=== PATIENT | male | born 1975 | race Caucasian/White ===

== ENCOUNTER 2019-04-27 13:55 | Inpatient (IN) | payer MEDICARE ==
[~2019-04-27] VITALS: Ht 188 cm; Wt 93.9 kg
[2019-04-27 14:53] VITALS: BP 147/105
[2019-04-27] MEDS ORDERED: OLANZapine 5 MG RAPDIS TABLET PO PRN (15:00)
[2019-04-27] MEDS ORDERED: LORazepam 2 MG TABLET PO PRN (15:00)
[2019-04-27] MEDS: LamoTRIgine 100 MG TABLET PO SCH ×5 (15:00→22:54)
[2019-04-27] MEDS ORDERED: ZOLPIDEM TARTRATE 10 MG TABLET PO PRN (15:00)
[2019-04-27 15:48] VITALS: BP 158/109
[2019-04-27] MEDS ORDERED: PETROLATUM,WHITE 28 GM JELLY TP PRN (16:30)
[2019-04-27] MEDS ORDERED: AmLODIPine BESYLATE 5 MG TABLET PO ONE (16:30)
[2019-04-27] MEDS ORDERED: ALBUTEROL SULFATE HFA 90 MCG/PUFF 8 GM INHALER IH PRN (16:30)
[2019-04-27] MEDS ORDERED: LOPERAMIDE HCL 2 MG CAPSULE PO PRN (16:30)
[2019-04-27] MEDS ORDERED: GuaiFENesin/D-METHORPHAN [SUGAR-FREE] 200-20MG/10 ML SYRUP UDCUP PO PRN (16:30)
[2019-04-27] MEDS ORDERED: ACETAMINOPHEN 325 MG TABLET PO PRN (16:30)
[2019-04-27] MEDS ORDERED: MAG HYDROX/AL HYDROX/SIMETH ES 30 ML SUSPENSION UDCUP PO PRN (16:30)
[2019-04-27] MEDS ORDERED: DOCUSATE SODIUM 100 MG CAPSULE PO PRN (16:30)
[2019-04-27] MEDS ORDERED: CloNIDine HCL 0.1 MG TABLET PO PRN (16:30)
[2019-04-27] MEDS ORDERED: MAGNESIUM HYDROXIDE SUSPENSION 30 ML UDCUP PO PRN (16:30)
[2019-04-27] MEDS ORDERED: IBUPROFEN 400 MG TABLET PO PRN (16:30)
[2019-04-27] MEDS ORDERED: ONDANSETRON HCL 4 MG TABLET PO PRN (16:30)
[2019-04-27] MEDS: BusPIRone HCL 5 MG TABLET PO SCH ×2 (17:00→18:28)
[2019-04-27] MEDS: NICOTINE 14 MG/24 HOUR PATCH TD PRN (18:29)
[2019-04-27] MEDS: OLANZapine 10 MG TABLET PO SCH (22:53)
[2019-04-28 00:08] VITALS: BP 123/91
[2019-04-28 07:49] LABS: BASOPHILS % (AUTO) 0.3 % (0.0-2.0); EOSINOPHILS % (AUTO) 3.1 % (1.0-6.0); HEMATOCRIT 45.1 % (41-53); HEMOGLOBIN 14.9 g/dL (13.5-17.5); LYMPHOCYTES # (AUTO) 2.2 K/uL (1.0-4.8); LYMPHOCYTES % (AUTO) 34.2 % (22.0-44.0); MEAN CORPUSCULAR HEMOGLOBIN 31.4 pg (26.0-34.0); MEAN CORPUSCULAR VOLUME 95 fL (80-100); MONOCYTES # (AUTO) 0.4 K/uL (0.1-1.0); MONOCYTES % (AUTO) 6.1 % (2.0-9.0); NEUTROPHILS # (AUTO) 3.7 K/uL (1.8-7.7); NEUTROPHILS % (AUTO) 56.3 % (40.0-70.0); PLATELET COUNT (AUTO) 321 K/uL (150-450); RED BLOOD CELL COUNT(AUTO) 4.74 MIL/uL (4.50-5.90); RED CELL DISTRIBUTION WIDTH 14.2 % (11.5-14.5)
[2019-04-28 08:10] VITALS: BP 136/83
[2019-04-28 08:15] LABS: ALANINE AMINOTRANSFERASE 18 U/L (12-78); ALBUMIN 3.6 g/dL (3.4-5.0); ALKALINE PHOSPHATASE 71 U/L (46-116); ANION GAP 8 mmol/L (8-16); ASPARTATE AMINOTRANSFERASE 12 U/L (15-37); BILIRUBIN,TOTAL 0.4 mg/dL (0.1-1.0); CALCIUM, TOTAL 9.4 mg/dL (8.8-10.5); CARBON DIOXIDE 26 mmol/L (22-29); CHLORIDE 107 mmol/L (98-107); CHOL/HDL RATIO 4.9 (4.2-7.3); CHOLESTEROL 162 mg/dL (131-200); CREATININE 1.18 mg/dL (0.60-1.30); GLOMERULAR FILTR. RATE CALC > 60 mL/min (>60); GLUCOSE,RANDOM 83 mg/dL (70-110); HDL CHOLESTEROL 33 mg/dL (40-60); LDL CHOL (CALC.) 87 mg/dL (0-130); POTASSIUM 4.2 mmol/L (3.5-5.1); SODIUM SERUM 141 mmol/L (136-145); THYROID STIMULATING HORMONE 0.73 uIU/mL (0.36-3.74); TOTAL PROTEIN, SERUM 7.2 g/dL (6.4-8.2); TRIGLYCERIDES 208 mg/dL (15-150); UREA NITROGEN, BLOOD 21 mg/dL (7-18)
[2019-04-28 08:25] LABS: APPEARANCE,URINE CLEAR (CLEAR); BILIRUBIN,URINE NEGATIVE (NEGATIVE); GLUCOSE, URINE (UA) NEGATIVE (NEGATIVE); KETONES,URINE NEGATIVE (NEGATIVE); LEUKOCYTE ESTERASE ,URINE NEGATIVE (NEGATIVE); NITRATE,URINE NEGATIVE (NEGATIVE); OCCULT BLOOD,URINE NEGATIVE (NEGATIVE); PH,URINE 5.5 (5.0-8.0); PROTEIN,URINE NEGATIVE (NEGATIVE); UROBILINOGEN,URINE 0.2 mg/dL (<=1.0)
[2019-04-28 08:26] LABS: AMPHET/METH SCREEN,URINE NEGATIVE (NEGATIVE); BARBITURATE SCREEN, URINE NEGATIVE (NEGATIVE); BENZODIAZEPINES SCREEN,URINE NEGATIVE (NEGATIVE); CANNABINOID SCREEN,URINE POSITIVE (NEGATIVE); COCAINE SCREEN,URINE NEGATIVE (NEGATIVE); METHADONE SCREEN, URINE NEGATIVE (NEGATIVE); OPIATE SCREEN,URINE NEGATIVE (NEGATIVE)
[2019-04-28 08:29] LABS: PHENCYCLIDINE SCREEN,URINE NEGATIVE (NEGATIVE)
[2019-04-28] MEDS: LamoTRIgine 100 MG TABLET PO SCH ×2 (08:39→16:03)
[2019-04-28] MEDS: BusPIRone HCL 5 MG TABLET PO SCH ×2 (08:39→16:03)
[2019-04-28] MEDS: AmLODIPine BESYLATE 5 MG TABLET PO SCH (08:40)
[2019-04-28] MEDS: NICOTINE 14 MG/24 HOUR PATCH TD PRN (10:45)
[2019-04-28 16:15] VITALS: BP 131/79
[2019-04-28] MEDS: OLANZapine 10 MG TABLET PO SCH (20:21)
[2019-04-29] VITALS: BP 116/74
[2019-04-29] MEDS: NICOTINE 14 MG/24 HOUR PATCH TD PRN (08:15)
[2019-04-29] MEDS: LamoTRIgine 100 MG TABLET PO SCH ×2 (08:15→16:52)
[2019-04-29] MEDS: BusPIRone HCL 5 MG TABLET PO SCH ×2 (08:15→16:52)
[2019-04-29] MEDS: AmLODIPine BESYLATE 5 MG TABLET PO SCH (08:15)
[2019-04-29 08:26] VITALS: BP 134/77
[2019-04-29 16:18] VITALS: BP 130/86
[2019-04-29] MEDS: OLANZapine 10 MG TABLET PO SCH (20:17)
[2019-04-30 00:27] VITALS: BP 121/68
[2019-04-30 08:24] VITALS: BP 127/75
[2019-04-30] MEDS ORDERED: LAMO100 PO (08:44)
[2019-04-30] MEDS ORDERED: OLAN10TA3 PO (08:44)
[2019-04-30] MEDS: LamoTRIgine 100 MG TABLET PO SCH (08:47)
[2019-04-30] MEDS: BusPIRone HCL 5 MG TABLET PO SCH (08:47)
[2019-04-30] MEDS ORDERED: AMLO5TAB9 PO (08:48)
[2019-04-30] MEDS: AmLODIPine BESYLATE 5 MG TABLET PO SCH (08:56)
== END 2019-04-30 09:25 | disposition home or self-care (01) | DRG 885 ==
LOC: B2S 15:27
DX: F25.0 Schizoaffective disorder, bipolar type (principal); F12.10 Cannabis abuse, uncomplicated; F10.10 Alcohol abuse, uncomplicated; E78.5 Hyperlipidemia, unspecified; F19.10 Other psychoactive substance abuse, uncomplicated; Z79.899 Other long term (current) drug therapy; Z91.5 Personal history of self-harm; Z71.41 Alcohol abuse counseling and surveillance of alcoholic; Z71.51 Drug abuse counseling and surveillance of drug abuser
CPT/HCPCS: 80307; 83036; 84443; 86592

== ENCOUNTER 2022-07-20 10:55 | Emergency (ER) | payer MEDICARE, MEDICAID ==
[~2022-07-20] VITALS: Ht 177.8 cm; Wt 90.9 kg
[~2022-07-20 10:55] MED LIST: BUPR-50 PO; BUSP15 PO; LAMO100 PO; OLAN7.5T22 PO
[2022-07-20 11:59] LABS: BASOPHILS % (AUTO) 0.5 % (0.0-2.0); EOSINOPHILS % (AUTO) 0.4 % (1.0-6.0); HEMATOCRIT 49.6 % (41-53); HEMOGLOBIN 16.3 g/dL (13.5-17.5); LYMPHOCYTES # (AUTO) 2.4 K/uL (1.0-4.8); LYMPHOCYTES % (AUTO) 17.3 % (22.0-44.0); MEAN CORPUSCULAR HEMOGLOBIN 32.2 pg (26.0-34.0); MEAN CORPUSCULAR HGB CONC 32.8 G/dL (31.0-37.0); MEAN CORPUSCULAR VOLUME 98 fL (80-100); MONOCYTES # (AUTO) 0.6 K/uL (0.1-1.0); MONOCYTES % (AUTO) 4.1 % (2.0-9.0); NEUTROPHILS # (AUTO) 10.7 K/uL (1.8-7.7); NEUTROPHILS % (AUTO) 77.7 % (40.0-70.0); PLATELET COUNT (AUTO) 274 K/uL (150-450); RED BLOOD CELL COUNT(AUTO) 5.06 MIL/uL (4.50-5.90); RED CELL DISTRIBUTION WIDTH 14.5 % (11.5-14.5)
[2022-07-20 12:13] LABS: CALCIUM, TOTAL 10.1 mg/dL (8.8-10.5); CREATININE 1.39 mg/dL (0.60-1.30)
[2022-07-20 12:19] LABS: ALBUMIN 4.9 g/dL (3.4-5.0); BILIRUBIN,TOTAL 0.7 mg/dL (0.1-1.0); TOTAL PROTEIN, SERUM 8.4 g/dL (6.4-8.2)
[2022-07-20] MEDS ORDERED: KETOROLAC TROMETHAMINE 30 MG/ML VIAL IM ONE (14:45)
[2022-07-20 14:50] VITALS: BP 144/80
== END 2022-07-20 15:09 | disposition home or self-care (01) ==
LOC: EMS 11:12
DX: R07.89 Other chest pain (principal); F17.210 Nicotine dependence, cigarettes, uncomplicated; Z98.890 Other specified postprocedural states
CPT/HCPCS: 99285; 71045; 80053; 83880; 84484; 85025; 85379; 36415; 93005; 96372; J1885